=== PATIENT | male | born 1975 | race Caucasian/White ===

== ENCOUNTER 2016-11-15 09:03 | Emergency (ER) | payer MEDICAID, OTHER ==
[~2016-11-15] VITALS: Ht 180.3 cm; Wt 78.0 kg
[~2016-11-15 09:03] MED LIST: DEXI30CA2 PO; PROM25TA5 PO
[2016-11-15 09:06] VITALS: BP 147/85; PULSE 78; RESP 16; TEMP 98.4; O2SAT 99
--- NOTE | 2016-11-15 09:28 | PD ---
HPI Chief Complaint: Abdominal Pain Time Seen by Provider: 09:17 Travel History International Travel<30 days: No Contact w/Intl Traveler<30days: No Traveled to known affect area: No History of Present Illness HPI This is a 41-year-old male who presents to the emergency department with 1-1/2 weeks of abdominal discomfort described as aching in the right abdomen that radiates down into the scrotal area, intermittent, worse with walking and being on his feet all day, improved with rest. He said no nausea vomiting, diarrhea, fevers, chills or dysuria. He's had no constipation. He's never had pain like this before. He has not noticed any discharge from his penis. He's never had abdominal surgery. He does drink alcohol daily. PFS Past Medical History Medical History: Denies Significant Hx GERD: Yes Tetanus Vaccination: > 5 Years Influenza Vaccination: No Past Surgical History Surgical History: No Previous Surgery Social History Alcohol Use: Yes (2-3 daily (beer or whiskey)) Tobacco Use: No Substance Use: Yes (Marijuana occ.) Allergies-Medications (Allergen,Severity, Reaction): Coded Allergies: No Known Allergies (Verified , 11/15/16) Reported Meds & Prescriptions Reported Meds & Active Scripts Active No Active Prescriptions or Reported Medications Review of Systems Except as stated in HPI: all other systems reviewed are Neg Physical Exam Narrative GENERAL:Well appearing, no acute distress SKIN: Focused skin assessment warm and dry. HEAD: Atraumatic. Normocephalic. EYES: Pupils equal and round. No injection or drainage. ENT: Moist mucous membranes NECK: Trachea midline. CARDIOVASCULAR: Regular rate and rhythm. No murmur appreciated. RESPIRATORY: Clear to auscultation. Breath sounds equal bilaterally. GASTROINTESTINAL: Abdomen soft, tender to palpation in the right upper and right lower quadrants : Tender to palpation along the posterior aspect of the scrotum, inguinal defect appreciated on the right with no protruding hernia MUSCULOSKELETAL: No obvious deformities. NEUROLOGICAL: Awake and alert. No obvious cranial nerve deficits. Moving all extremities. PSYCHIATRIC: Appropriate mood and affect; insight and judgment normal. Data Data Last Documented VS Vital Signs Date Time Temp Pulse Resp B/P (MAP) Pulse Ox O2 Delivery O2 Flow Rate FiO2 11/15/16 09:06 98.4 78 16 147/85 (105) 99 Orders Orders Complete Blood Count With Diff (11/15/16 09:25) Comprehensive Metabolic Panel (11/15/16 09:25) ^ Insert Iv (11/15/16 09:25) Ct Abd/Pel W Iv Contrast(Rout) (11/15/16 ) Urinalysis - C+S If Indicated (11/15/16 09:25) Gc And Chlamydia Pcr (11/15/16 09:33) Lipase (11/15/16 09:30) Iohexol 350 Inj (Omnipaque 350 Inj) (11/15/16 10:16) Labs Laboratory Tests Test 11/15/16 09:30 White Blood Count 5.4 TH/MM3 Red Blood Count 5.08 MIL/MM3 Hemoglobin 14.6 GM/DL Hematocrit 43.4 % Mean Corpuscular Volume 85.4 FL Mean Corpuscular Hemoglobin 28.7 PG Mean Corpuscular Hemoglobin Concent 33.6 % Red Cell Distribution Width 12.3 % Platelet Count 244 TH/MM3 Mean Platelet Volume 8.0 FL Neutrophils (%) (Auto) 54.9 % Lymphocytes (%) (Auto) 33.5 % Monocytes (%) (Auto) 7.3 % Eosinophils (%) (Auto) 3.2 % Basophils (%) (Auto) 1.1 % Neutrophils # (Auto) 2.9 TH/MM3 Lymphocytes # (Auto) 1.8 TH/MM3 Monocytes # (Auto) 0.4 TH/MM3 Eosinophils # (Auto) 0.2 TH/MM3 Basophils # (Auto) 0.1 TH/MM3 CBC Comment DIFF FINAL Differential Comment Urine Collection Type CLEAN CATCH Urine Color YELLOW Urine Turbidity CLEAR Urine pH 6.0 Urine Specific Anthony 1.023 Urine Protein NEG mg/dL Urine Glucose (UA) NEG mg/dL Urine Ketones NEG mg/dL Urine Occult Blood NEG Urine Nitrite NEG Urine Bilirubin NEG Urine Leukocyte Esterase NEG Urine Squamous Epithelial Cells 0-5 /hpf Urine Amorphous Sediment FEW Microscopic Urinalysis Comment CULT NOT INDICATED Urine Collection Time 0950 Blood Urea Nitrogen 15 MG/DL Creatinine 1.10 MG/DL Random Glucose 130 MG/DL Total Protein 7.9 GM/DL Albumin 4.0 GM/DL Calcium Level 8.9 MG/DL Alkaline Phosphatase 51 U/L Aspartate Amino Transf (AST/SGOT) 19 U/L Alanine Aminotransferase (ALT/SGPT) 24 U/L Total Bilirubin 0.5 MG/DL Sodium Level 140 MEQ/L Potassium Level 3.7 MEQ/L Chloride Level 105 MEQ/L Carbon Dioxide Level 26.9 MEQ/L Anion Gap 8 MEQ/L Estimat Glomerular Filtration Rate 73 ML/MIN Lipase 240 U/L MDM Medical Decision Making Medical Screen Exam Complete: Yes Emergency Medical Condition: Yes Interpretation(s) Afebrile, no tachycardia, mild hypertension No leukocytosis Electrolytes are reassuring Lipase is normal Urinalysis is negative for infection CT abdomen and pelvis: No acute process Differential Diagnosis Urethritis, epididymitis, kidney stone, cholelithiasis, cholecystitis, appendicitis Narrative Course This is a 41-year-old male who presents to the emergency department with right sided abdominal discomfort that's been going on for a week and a half. He is tender on the right side of the abdomen. He also has a palpable defect in the right inguinal canal. Labs are obtained which are reassuring. Urinalysis is negative for infection and CT abdomen and pelvis is unremarkable. I suspect the patient has a symptomatic right inguinal hernia. Patient will be referred to general surgery as an outpatient. Diagnosis Primary Impression: Inguinal hernia Qualified Codes: K40.90 - Unilateral inguinal hernia, without obstruction or gangrene, not specified as recurrent Patient Instructions: General Instructions Additional Instructions: If you develop severe or worsening abdominal pain, fever>100.4, persistent vomiting or inability to eat or drink return to the emergency department immediately. Follow-up with a general surgeon regarding a possible hernia. Med/Other Pt SpecificInfo: No Change to Meds Scripts No Active Prescriptions or Reported Meds Disposition: 01 DISCHARGE HOME Condition: Stable Mackenzie Malone MD Nov 15, 2016 09:28
[2016-11-15 09:40] LABS: AUTOMATED NEUTROPHIL # 2.9 TH/MM3 (1.8-7.7); BASOPHIL # 0.1 TH/MM3 (0-0.2); BASOPHIL % 1.1 % (0.0-2.0); BLOOD, URINE NEG (NEG); EOSINOPHIL # 0.2 TH/MM3 (0-0.4); EOSINOPHIL % 3.2 % (0.0-4.0); GLUCOSE,URINE NEG (NEG); HEMATOCRIT 43.4 % (39.0-51.0); HEMO FLAGS DIFF FINAL; KETONE, URINE NEG (NEG); LYMPH % 33.5 % (9.0-44.0); LYMPHOCYTE # 1.8 TH/MM3 (1.0-4.8); MEAN CELL VOLUME 85.4 FL (80.0-100.0); MEAN CORPUSCULAR HEMOGLOBIN 28.7 PG (27.0-34.0); MEAN CORPUSCULAR HGB CONC 33.6 % (32.0-36.0); MONO % 7.3 % (0.0-8.0); NEUT % 54.9 % (16.0-70.0); NITRITE,URINE NEG (NEG); PLATELET COUNT 244 TH/MM3 (150-450); RED BLOOD COUNT 5.08 MIL/MM3 (4.50-5.90); RED CELL DISTRIBUTION WIDTH 12.3 % (11.6-17.2); WHITE BLOOD COUNT 5.4 TH/MM3 (4.0-11.0)
[2016-11-15 09:54] LABS: METHOD OF COLLECTION CLEAN CATCH; URINE COLOR YELLOW (YELLW/STRAW)
[2016-11-15 09:55] LABS: COMMENT (UR) CULT NOT INDICATED; CULTURE IF INDICATED CULT NOT INDICATED; SQUAMOUS EPITHELIAL CELL URINE 0-5 /hpf (0-5)
[2016-11-15 10:07] LABS: CHLORIDE 105 MEQ/L (98-107); POTASSIUM 3.7 MEQ/L (3.5-5.1); SODIUM (NA) 140 MEQ/L (136-145)
[2016-11-15 10:11] LABS: ANION GAP 8 MEQ/L (5-15); BICARBONATE 26.9 MEQ/L (21.0-32.0)
[2016-11-15 10:12] LABS: BLOOD UREA NITROGEN 15 MG/DL (7-18)
[2016-11-15 10:14] LABS: ALT (GPT) 24 U/L (12-78); AST (GOT) 19 U/L (15-37); GLOMERULAR FILTRATION RATE 73 ML/MIN (>89)
[2016-11-15 10:16] LABS: TOTAL BILIRUBIN ADULT 0.5 MG/DL (0.2-1.0)
[2016-11-15] MEDS ORDERED: IOHEXOL 350 MG/ML 10 ML VIAL (for RAD DIAG) IVCONTRAST ONE (10:16)
[2016-11-15 10:17] LABS: ALKALINE PHOSPHATASE 51 U/L (45-117)
--- NOTE | 2016-11-15 10:33 | RADRPT ---
EXAM DATE/TIME: 11/15/2016 10:03 [facility] COMPARISON: No previous studies available for comparison. INDICATIONS : Mid abdominal pain radiating to his pelvis. IV CONTRAST: 96 cc Omnipaque 350 (iohexol) IV ORAL CONTRAST: No oral contrast ingested. RADIATION DOSE: 11.33 CTDIvol (mGy) MEDICAL HISTORY : Gastroesophageal reflux disease. SURGICAL HISTORY : None. ENCOUNTER: Initial ACUITY: 2 weeks PAIN SCALE: 6/10 LOCATION: middle abdominal. TECHNIQUE: Volumetric scanning of the abdomen and pelvis was performed. Using automated exposure control and ad justment of the mA and/or kV according to patient size, radiation dose was kept as low as reasonably achievable to obtain optimal diagnostic quality images. DICOM format image data is available electro nically for review and comparison. FINDINGS: Lung bases are clear. Osseous structures are intact. No pleural or pericardial effusions. A small hia norma hernia is suspected. There are innumerable hepatic low density foci characteristic of tiny cysts. Adrenals, kidneys, spleen, pancreas are unremarkable. Tiny fat-containing umbilical hernia. Urinary bladder and prostate are unremarkable. No evidence of bowel obstruction. The appendix is normal. No i nflammatory changes are present within the abdomen or pelvis. No adenopathy or aneurysm. Gallbladder unremarkable. 2 mm nonobstructing right upper pole renal calculus. CONCLUSION: 1. Hepatic cysts. 2. Tiny hiatal hernia and fat-containing umbilical hernia. 3. Nonobstructing right renal calculus. Ihsan Parsons MD on November 15, 2016 at 10:29 Board Certified Radiologist. This report was verified electronically.
[2016-11-15 10:50] VITALS: BP 143/93; PULSE 72; RESP 16; O2SAT 100
[2016-11-15 15:53] LABS: CHLAMYDIA PCR NOT DETECTED (NOT DETECT); NEISSERIA PCR NOT DETECTED (NOT DETECT)
== END 2016-11-15 10:50 | disposition home or self-care (01) ==
LOC: PHED 09:03
DX: K40.90 Unilateral inguinal hernia, without obstruction or gangrene, not specified as recurrent (principal); Z87.19 Personal history of other diseases of the digestive system
CPT/HCPCS: 74177; 80053; 81001; 83690; 85025; 87491; 87591; 99285; Q9967